=== PATIENT | female | born 1965 | race Caucasian/White ===

== ENCOUNTER 2016-11-22 19:24 | Emergency (ER) | payer OTHER ==
[2016-11-22 18:34] LABS: URINE SOURCE CLEAN CATCH
[2016-11-22 18:36] LABS: URINE APPEARANCE CLOUDY; URINE BILIRUBIN NEG (NEG); URINE BLOOD 3+ (NEG); URINE COLOR YELLOW; URINE KETONE NEG (NEG); URINE LEUKOCYTE ESTERASE 3+ (NEG); URINE NITRATE NEG (NEG); URINE PH 8.5 (5-8); URINE PROTEIN 2+ (NEG); URINE SPECIFIC GRAVITY 1.015 (1.003-1.035); URINE UROBILINOGEN 0.2 MG/DL (NORM)
[2016-11-22 18:37] LABS: MICRO INDICATED? YES; URINE GLUCOSE 50 MG/DL (NORM)
[2016-11-22 18:44] LABS: CULTURE INDICATED? YES; URINE BACTERIA 2+ (NEG); URINE MUCUS PRESENT; URINE SQUAMOUS EPITHELIAL CELL FEW /[HPF]; URINE WBC 200-300 /[HPF] (0-5)
[~2016-11-22 19:24] MED LIST: BIOTIN OTC; GLUCOPHAGE500 M1 PO; HUMALOG100 U/ML; HUMAPEN LUXURA1 EACH; IRON PILL; LANTUS100 UNITS/ SUBQ; NEXIUM PO; VITAMIN C OTC; VOLTAREN 0.1%2.5 ML OD; ZOLOFT PO; [UNRECOGNIZED DRUG - REMARK]
== END 2016-11-22 20:12 | disposition home or self-care (01) ==
LOC: SED 19:24
PROVIDERS: Nurse Practitioner
DX: N30.01 Acute cystitis with hematuria (principal); E11.9 Type 2 diabetes mellitus without complications; Z88.0 Allergy status to penicillin; Z88.5 Allergy status to narcotic agent; Z79.4 Long term (current) use of insulin
CPT/HCPCS: 81003; 82947; 87086; 87088; 87186; 99283